=== PATIENT | male | born 1955 | race Caucasian/White ===

== ENCOUNTER 2019-06-08 08:39 | Outpatient (CLI) | payer MEDICARE, BC ==
--- NOTE | 2019-06-08 09:06 | RAD ---
2 views chest: 06/08/2019 COMPARISON: 09/18/2016 HISTORY: Left-sided chest pain for 6 weeks FINDINGS: No pneumothorax or pleural fluid. No focal consolidation or alveolar edema. There is diffus e increased linear interstitial density with pulmonary hyperinflation, suggesting COPD in the proper clinical setting. Midline sternotomy wires and mediastinal clips are present. IMPRESSION: No radiographic evidence of acute cardiopulmonary disease. Chronic-appearing findings as detailed above.
== END 2019-06-08 08:40 | disposition home or self-care (01) ==
LOC: BICRAD 08:39
PROVIDERS: ATTEND Otolaryngology Otolaryngic Allergy
DX: C09.9 Malignant neoplasm of tonsil, unspecified (principal); R53.83 Other fatigue; R91.8 Other nonspecific abnormal finding of lung field; Z98.890 Other specified postprocedural states
CPT/HCPCS: 71046

== ENCOUNTER 2020-12-05 10:00 | Outpatient (CLI) | payer MEDICARE, BC | END 2020-12-05 10:01 | disposition home or self-care (01) | LOC: BICRAD 10:00 | PROVIDERS: ATTEND Family Medicine | DX: M54.14 Radiculopathy, thoracic region (principal); M51.26 Other intervertebral disc displacement, lumbar region; C09.9 Malignant neoplasm of tonsil, unspecified; Z12.5 Encounter for screening for malignant neoplasm of prostate; I25.10 Atherosclerotic heart disease of native coronary artery without angina pectoris; E78.5 Hyperlipidemia, unspecified; E03.9 Hypothyroidism, unspecified; Z79.899 Other long term (current) drug therapy | CPT/HCPCS: 72100; 73502 ×2; 80061; 83036; 85652; G0103; 36415; 80053; 84443; 85025 ==

== ENCOUNTER 2021-02-16 07:29 | Outpatient (CLI) | payer MEDICARE ==
[2021-02-16] MEDS ORDERED: Magnevist 469MG/ML 20 ML VIAL ONE (10:10)
== END 2021-02-16 07:30 | disposition home or self-care (01) ==
LOC: BICMRI 07:29
PROVIDERS: ATTEND Family Medicine
DX: M51.26 Other intervertebral disc displacement, lumbar region (principal); M54.14 Radiculopathy, thoracic region; C09.9 Malignant neoplasm of tonsil, unspecified; M48.061 Spinal stenosis, lumbar region without neurogenic claudication
CPT/HCPCS: 72158; 82565; A9579

== ENCOUNTER 2024-01-21 07:31 | Outpatient (CLI) | payer MEDICARE, BC | END 2024-01-21 07:32 | disposition home or self-care (01) | LOC: ULT 07:31 | PROVIDERS: ATTEND Family Medicine | DX: M79.89 Other specified soft tissue disorders (principal); M79.604 Pain in right leg ==

== ENCOUNTER 2024-06-21 08:19 | Outpatient (CLI) | payer MEDICARE, BC | END 2024-06-21 08:20 | disposition home or self-care (01) | LOC: SCSMRI 08:19 | PROVIDERS: ATTEND Specialist | DX: R22.41 Localized swelling, mass and lump, right lower limb (principal); S80.11XA Contusion of right lower leg, initial encounter ==

== ENCOUNTER 2025-05-20 09:36 | Outpatient (CLI) | payer MEDICARE, BC ==
[2025-05-20 10:14] LABS: Estimated GFR - POC 80.0
[2025-05-20] MEDS ORDERED: Iopamidol 370 76% 100 ML VIAL ONE (11:56)
== END 2025-05-20 09:37 | disposition home or self-care (01) ==
LOC: CT 09:36
PROVIDERS: ATTEND Specialist
DX: C64.2 Malignant neoplasm of left kidney, except renal pelvis (principal); R91.8 Other nonspecific abnormal finding of lung field
CPT/HCPCS: 36415; 71260; 82565; Q9967

== ENCOUNTER 2025-06-10 09:00 | Day surgery (SDC) | payer MEDICARE, BC ==
[2025-06-10 09:16] LABS: #Basophils 0.04 10x3/uL (0.0-0.2); #Eosinophils 0.15 10x3/uL (0.0-0.7); #Monocytes 0.50 10x3/uL (0.11-0.59); #Neutrophils 3.99 10x3/uL (1.40-6.50); %Basophils 0.7 % (0.0-1.0); %Eosinophils 2.8 % (0.0-10.0); %Lymphocytes 13.4 % (21.0-51.0); %Monocytes 9.2 % (0.0-10.0); %Neutrophils 73.5 % (42.0-75.0); Hematocrit 39.8 % (42.0-52.0); Hemoglobin 12.4 g/dL (14.0-18.0); Mean Corpuscular Hemoglobin 26.1 pg (27.0-31.0); Mean Corpuscular Volume 83.8 fL (78.0-98.0); Platelet Count 148 10x3/uL (130-400); Red Blood Cell (RBC) Count 4.75 mill/uL (4.70-6.10); White Blood Cell (WBC) Count 5.43 10x3/uL (4.8-10.8)
[2025-06-10 09:29] LABS: INR-International Normal Ratio 1.1; Prothrombin Time 14.6 sec (12.0-14.7)
[2025-06-10 09:30] LABS: PTT 32.8 sec (22.9-36.1)
[2025-06-10] MEDS ORDERED: Benzonatate 100 MG CAP PO SCH (10:45)
[2025-06-10] MEDS ORDERED: Lidocaine 1% w/Epinephrine 1:100K 20 ML VIAL ONE (11:58)
[2025-06-10] MEDS ORDERED: Sodium Bicarbonate 2.5 MEQ/5 ML SDV ONE (11:58)
== END 2025-06-10 15:55 | disposition home or self-care (01) ==
LOC: CT 09:00
PROVIDERS: ATTEND Radiology Diagnostic Radiology
PROC: 0BBJ3ZX Excision of Left Lower Lung Lobe, Percutaneous Approach, Diagnostic (ICD-10-PCS; principal; 2025-06-10)
DX: C78.02 Secondary malignant neoplasm of left lung (principal); C64.2 Malignant neoplasm of left kidney, except renal pelvis; Z95.1 Presence of aortocoronary bypass graft; Z79.01 Long term (current) use of anticoagulants
CPT/HCPCS: 32408; 36000; 71045; 71046; 77002; 77012; 85025; 85610; 85730; 88333; 88334; J2250; 36415; 88305; 88341; 88342; 99152; 99153

== ENCOUNTER 2025-06-28 08:40 | Day surgery (SDC) | payer MEDICARE, BC ==
[2025-06-27 11:26] VITALS: BMI 23.1
[2025-06-28] MEDS ORDERED: Lidocaine 1% PF 5 ML VIAL ONE (09:46)
[2025-06-28] MEDS ORDERED: PROPOFOL 20 ML ONE (09:46)
[2025-06-28 10:08] LABS: #Basophils 0.03 10x3/uL (0.0-0.2); #Eosinophils 0.16 10x3/uL (0.0-0.7); #Monocytes 0.53 10x3/uL (0.11-0.59); #Neutrophils 3.72 10x3/uL (1.40-6.50); %Basophils 0.6 % (0.0-1.0); %Eosinophils 3.1 % (0.0-10.0); %Lymphocytes 12.2 % (21.0-51.0); %Monocytes 10.4 % (0.0-10.0); %Neutrophils 73.3 % (42.0-75.0); Hematocrit 40.1 % (42.0-52.0); Hemoglobin 12.8 g/dL (14.0-18.0); Mean Corpuscular Hemoglobin 26.4 pg (27.0-31.0); Mean Corpuscular Volume 82.7 fL (78.0-98.0); Platelet Count 135 10x3/uL (130-400); Red Blood Cell (RBC) Count 4.85 mill/uL (4.70-6.10); White Blood Cell (WBC) Count 5.08 10x3/uL (4.8-10.8)
[2025-06-28] MEDS ORDERED: Bupivacaine 0.25% HCL 30 ML VIAL ONE (10:22)
[2025-06-28 10:31] LABS: Anion Gap 17 mmol/L (10-20); BUN (Urea Nitrogen) 21 mg/dL (8.4-25.7); Calc. Creatinine Clearance 87 mL/min (70-130); Calcium 9.3 mg/dL (7.8-10.44); Carbon Dioxide 23 mmol/L (23-31); Chloride 105 mmol/L (98-107); Glucose 111 mg/dL (83-110); Potassium 4.2 mmol/L (3.5-5.1); Sodium 141 mmol/L (136-145)
[2025-06-28] MEDS ORDERED: CEFAZOLIN 2 GM VIAL ONE (11:07)
[2025-06-28] MEDS ORDERED: PHENYLEPHRINE-NS 100 MCG/ML 10 ML SYRINGE ONE (11:41)
== END 2025-06-28 13:05 | disposition home or self-care (01) ==
LOC: SDC 08:40
PROVIDERS: ATTEND Surgery
PROC: 0JH60WZ Insertion of Totally Implantable Vascular Access Device into Chest Subcutaneous Tissue and Fascia, Open Approach (ICD-10-PCS; principal; 2025-06-28)
DX: C79.00 Secondary malignant neoplasm of unspecified kidney and renal pelvis (principal); C20 Malignant neoplasm of rectum; I10 Essential (primary) hypertension; E78.5 Hyperlipidemia, unspecified; K21.9 Gastro-esophageal reflux disease without esophagitis
CPT/HCPCS: 36561; 71045 ×2; 80048; 85025; J0665; J1642; J2704; J3010; C1788

== ENCOUNTER 2025-08-09 07:37 | Outpatient (CLI) | payer MEDICARE, BC | END 2025-08-09 07:38 | disposition home or self-care (01) | LOC: CT 07:37 | PROVIDERS: ATTEND Internal Medicine | DX: Z23 Encounter for immunization (principal); C09.0 Malignant neoplasm of tonsillar fossa; C64.2 Malignant neoplasm of left kidney, except renal pelvis; R06.02 Shortness of breath; R91.8 Other nonspecific abnormal finding of lung field; R16.1 Splenomegaly, not elsewhere classified; R59.0 Localized enlarged lymph nodes | CPT/HCPCS: 36000; 71275 ==